=== PATIENT | male | born 1985 | race Caucasian/White ===

== ENCOUNTER 2016-10-05 22:48 | Inpatient (IN) | payer MEDICAID ==
[~2016-10-05] VITALS: Ht 177.8 cm; Wt 83.1 kg
[~2016-10-05 22:48] MED LIST: ALBU8.5H3 INH; CLON-365 PO; GABA600T2 PO; ZOLP10TA PO
[2016-10-06] MEDS ORDERED: CLINDAMYCIN PMX 900MG/50ML 50 ML IVPB ONE (00:30)
[2016-10-06] MEDS ORDERED: SODIUM CHLORIDE 0.9% 1,000ML IVBOLUS ONE (00:30)
[2016-10-06] MEDS ORDERED: CLINDAMYCIN PMX 900MG/50ML 50 ML ONE (01:15)
[2016-10-06 01:24] LABS: BLOOD UREA NITROGEN 6 mg/dL (7-18)
[2016-10-06 01:26] LABS: ASPARTATE AMINO TRANSFERASE 22 U/L (15-37)
[2016-10-06] MEDS ORDERED: OMNIPAQUE 350 MG/ML, 100ML BOTTLE ONE (02:30)
[2016-10-06] MEDS ORDERED: SODIUM CHLORIDE 0.9% 1,000 ML IV ONE (03:20)
[2016-10-06] MEDS ORDERED: ONDANSETRON 2MG/ML, 2ML IVPush PRN ×3 (03:30→16:00)
[2016-10-06] MEDS ORDERED: MORPHINE SULFATE 4 MG/ML, 1ML IVPush PRN (03:30)
[2016-10-06] MEDS ORDERED: BISACODYL 10 MG SUPP PR PRN (04:30)
[2016-10-06] MEDS: NS + 20MEQ KCL 1,000 ML IV SCH ×2 (05:50→17:25)
[2016-10-06] MEDS: CEFTAROLINE 600 MG in SODIUM CHLORIDE 0.9% 100 ML IV SCH (05:51)
[2016-10-06 06:29] VITALS: BP 150/87
[2016-10-06 07:54] VITALS: BP 117/64
[2016-10-06] MEDS: HYDROmorphone 2 MG/ML, 1ML IVPush PRN ×3 (09:48→19:55)
[2016-10-06 11:41] LABS: DAU SCREEN DISCLAIMER
[2016-10-06 13:31] VITALS: BP 121/72
[2016-10-06] MEDS ORDERED: FENTANYL PF 100 MCG/2ML ONE ×2 (14:43→16:06)
[2016-10-06] MEDS ORDERED: MIDAZOLAM 1 MG/ML, 2ML ONE ×2 (14:43→16:06)
[2016-10-06] MEDS ORDERED: PROPOFOL 10 MG/ML, 20ML ONE (15:17)
[2016-10-06] MEDS ORDERED: FENTANYL PF 250 MCG/5ML ONE (15:34)
[2016-10-06] MEDS ORDERED: LABETALOL 5MG/ML, 20ML IV PRN (16:00)
[2016-10-06] MEDS ORDERED: METOPROLOL 1 MG/ML, 5ML IV PRN (16:00)
[2016-10-06] MEDS ORDERED: ALBUTEROL SULFATE 2.5 MG/3 ML NPPB PRN (16:00)
[2016-10-06] MEDS ORDERED: ACETAMINOPHEN 325 MG TABLET PO PRN (16:00)
[2016-10-06] MEDS ORDERED: hydrALAzine 20 MG/ML, 1ML IV PRN (16:00)
[2016-10-06] MEDS ORDERED: EPHEDRINE 50 MG/ML, 1ML IVPush PRN (16:00)
[2016-10-06] MEDS ORDERED: PROMETHAZINE 25 MG/ML, 1ML IV PRN (16:00)
[2016-10-06] MEDS ORDERED: OXYcodone 5 MG/5 ML ORAL.SOL UDC PO PRN (16:00)
[2016-10-06] MEDS ORDERED: MEPERIDINE/PF 25MG/0.5ML IVPush PRN (16:00)
[2016-10-06] MEDS ORDERED: ACETAMINOPHEN 650 MG/20.3 ML UDC ONE (16:06)
[2016-10-06] MEDS ORDERED: OXYcodone 5 MG/5 ML ORAL.SOL UDC ONE (16:06)
[2016-10-06] MEDS ORDERED: HYDROmorphone 2 MG/ML, 1ML ONE (16:06)
[2016-10-06] MEDS ORDERED: ACETAMINOPHEN 325 MG TABLET ONE (16:06)
[2016-10-06] MEDS: HYDROmorphone 1 MG/ML, 1ML IV PRN ×5 (16:09→16:35)
[2016-10-06] MEDS: FENTANYL PF 100 MCG/2ML IV PRN ×2 (16:10→16:19)
[2016-10-06] MEDS: MIDAZOLAM 1 MG/ML, 2ML IV PRN ×2 (16:15→16:29)
[2016-10-07] MEDS: CEFTAROLINE 600 MG in SODIUM CHLORIDE 0.9% 100 ML IV SCH ×3 (01:41→22:43)
[2016-10-07] MEDS: HYDROmorphone 2 MG/ML, 1ML IVPush PRN ×5 (01:50→23:55)
[2016-10-07 02:00] VITALS: BP 113/65
[2016-10-07] MEDS: LORazepam 2 MG/ML, 1ML IVPush PRN ×2 (02:47→18:09)
[2016-10-07 06:10] LABS: BLOOD UREA NITROGEN 5 mg/dL (7-18)
[2016-10-07 07:52] VITALS: BP 112/60
[2016-10-07 12:57] VITALS: BP 112/65
[2016-10-07 23:50] VITALS: BP 129/73
[2016-10-08] MEDS: HYDROmorphone 2 MG/ML, 1ML IVPush PRN ×4 (03:16→23:18)
[2016-10-08 03:18] VITALS: BP 106/48
[2016-10-08 04:52] VITALS: BP 107/62
[2016-10-08 07:31] LABS: BLOOD UREA NITROGEN 5 mg/dL (7-18)
[2016-10-08 07:58] VITALS: BP 111/73
[2016-10-08] MEDS ORDERED: OXYcodone/APAP 5/325MG TABLET PO PRN (10:00)
[2016-10-08] MEDS: CEFTAROLINE 600 MG in SODIUM CHLORIDE 0.9% 100 ML IV SCH ×2 (11:28→23:08)
[2016-10-08 15:23] VITALS: BP 121/67
[2016-10-08] MEDS ORDERED: HYDROmorphone 1 MG/ML, 1ML ONE ×2 (15:30→23:00)
[2016-10-08] MEDS: LORazepam 2 MG/ML, 1ML IVPush PRN (19:56)
[2016-10-08 19:57] VITALS: BP 120/71
[2016-10-08 20:01] VITALS: BP 133/73
[2016-10-09 02:40] VITALS: BP 120/63
[2016-10-09 05:28] LABS: BLOOD UREA NITROGEN 5 mg/dL (7-18)
[2016-10-09 07:15] VITALS: BP 127/71
[2016-10-09] MEDS ORDERED: CEFTRIAXONE PMX 1GM/50ML 50 ML IV SCH (07:30)
[2016-10-09] MEDS ORDERED: HYDROmorphone 1 MG/ML, 1ML ONE ×3 (07:38→20:32)
[2016-10-09] MEDS: HYDROmorphone 2 MG/ML, 1ML IVPush PRN ×3 (07:43→20:39)
[2016-10-09 12:27] VITALS: BP 94/47
[2016-10-09] MEDS: LORazepam 2 MG/ML, 1ML IVPush PRN ×2 (14:28→20:39)
[2016-10-09] MEDS: CEFDINIR 300 MG CAPSULE PO SCH (19:43)
[2016-10-09 19:44] VITALS: BP 106/54
[2016-10-10 03:03] VITALS: BP 124/64
[2016-10-10] MEDS ORDERED: HYDROmorphone 1 MG/ML, 1ML ONE (05:25)
[2016-10-10] MEDS: LORazepam 2 MG/ML, 1ML IVPush PRN (05:31)
[2016-10-10] MEDS: HYDROmorphone 2 MG/ML, 1ML IVPush PRN (05:32)
[2016-10-10 07:39] VITALS: BP 103/54
[2016-10-10] MEDS ORDERED: HYDR-882 PO (08:00)
[2016-10-10] MEDS ORDERED: CEFD300C37 PO (08:00)
[2016-10-10] MEDS: CEFDINIR 300 MG CAPSULE PO SCH (08:08)
== END 2016-10-10 10:00 | disposition home or self-care (01) | DRG 854 ==
LOC: ED 23:59 → EDIP 10-06 03:20 → 3NE 10-06 04:30 → DCLOUNGE 10-10 09:49
PROC: 0PBL0ZZ Excision of Left Ulna, Open Approach (ICD-10-PCS; principal; 2016-10-06 15:30)
DX: A41.9 Sepsis, unspecified organism (principal); L03.114 Cellulitis of left upper limb; E87.1 Hypo-osmolality and hyponatremia; E44.0 Moderate protein-calorie malnutrition; L02.414 Cutaneous abscess of left upper limb; F19.20 Other psychoactive substance dependence, uncomplicated; F11.20 Opioid dependence, uncomplicated; F17.210 Nicotine dependence, cigarettes, uncomplicated; E87.6 Hypokalemia; Z86.711 Personal history of pulmonary embolism; R65.20 Severe sepsis without septic shock; D63.8 Anemia in other chronic diseases classified elsewhere; Z68.26 Body mass index [BMI] 26.0-26.9, adult
CPT/HCPCS: 36415; 71010; 80048; 80053; 80307; 82962; 83605; 83735; 84100; 84145; 85025; 85610; 85651; 86141; 87040; 87070; 87075; 87181; 87205; 93005; 96365; 96366; J0696; J0712; J1170; J2250; J2704; J3010; J3480; Q9967; J2060; J7030